=== PATIENT | male | born 1960 | race Caucasian/White ===

== ENCOUNTER → 2021-03-06 12:46 | Outpatient (CLI) | payer OTHER, SELFPAY ==
[2021-03-06 13:30] LABS: Hematocrit 42.5 % (40-54); Hemoglobin 14.4 g/dL (13.0-16.5); Mean Corp Hgb Conc 33.9 g/dL (32-36); Mean Corpuscular Hgb 30.3 pg (27.0-32.0); Mean Corpuscular Volume 89.5 fL (80-94); Mean Platelet Vol. 10.4 fl (6.2-12.0); Platelet Count 200 K/mm3 (150-450); RBC Distribution Width CV 12.6 % (11.6-14.6); RBC Distribution Width SD 41.5 fl (35.1-43.9); Red Blood Count 4.75 M/mm3 (4.6-6.2)
[2021-03-06 13:53] LABS: Anion Gap 6 (5-15); BUN 16 mg/dL (7-18); BUN/Creat Ratio 15.4 RATIO (10-20); Chloride 105 mmol/L (98-107); Creatinine, Serum 1.04 mg/dL (0.70-1.30); EST Glomerular Filtration Rate 78 mL/min (>60); Est Glom Filt Rate - Afr Amer 94 mL/min (>60); Glucose 189 mg/dL (74-106); Potassium 4.2 mmol/L (3.5-5.1); Sodium Level 139 mmol/L (136-145)
== END ==
PROVIDERS: PCP Family Medicine; Visit Provider Urology
DX: Z01.810 Encounter for preprocedural cardiovascular examination (principal); Z01.812 Encounter for preprocedural laboratory examination
CPT/HCPCS: 36415; 80048; 85027; 87635; 93005; C9803; U0005; U0003

== ENCOUNTER → 2021-03-12 13:36 | Outpatient (CLI) | payer OTHER, SELFPAY ==
--- NOTE | 2021-03-12 13:58 | CT_ITS ---
STUDY: CT ABDOMEN AND PELVIS WITHOUT CONTRAST REASON FOR EXAM: Male, 60 years old. CALCULUS OF URETER. Left flank pain for 3 days and hematuria. RADIATION DOSAGE (If Supplied By Facility): CTDIvol = ( 17.08 ) mGy, DLP = ( 824.53 ) mGycm TECHNIQUE: Transaxial images were obtained from the dome of the diaphragm to the symphysis pubis without oral contrast, and without intravenous contrast. Sagittal and coronal images were reconstructed. Individualized dose optimization techniques were used for this CT. COMPARISON: None. FINDINGS: The visualized lung bases are unremarkable. Coronary artery calcification. Normal liver. There are surgical clips in the gallbladder fossa consistent with a prior cholecystectomy. Normal spleen. There are pancreatic calcifications in the distribution of the ducts consistent with chronic pancreatitis. Normal bilateral adrenal glands. Normal right kidney. Mild degree of left hydronephrosis due to a 2.5 mm calculus in the distal portion of the left ureter. Normal visualized stomach. Normal small intestine. There are multiple colonic diverticula consistent with diverticulosis. The appendix is visualized and appears normal. There is scattered atherosclerotic calcification of the abdominal aorta, without a demonstrated aneurysm. Normal inferior vena cava. Normal retroperitoneum. Several calculi are seen at the base of the bladder. The largest measures 1.6 cm x 1.1 cm. This is at the right side of the base of the bladder. There is evidence of a contracted gallbladder with diffuse thickening of the bladder wall. Diffuse prostatic calcification worse at the right base of the prostate. The prostate is enlarged with indentation at the bladder base. The prostate measures 4.2 cm x 5.3 cm. Normal abdominal wall. There are diffuse degenerative changes of the visualized lumbar spine. CT/Abdomen/Pelvis without Cont IMPRESSION: Diffuse bladder wall thickening with several stones at the base of the bladder more prominent on the right side. 2.5 mm calculus in the distal portion of left ureter causing left hydronephrosis. Chronic pancreatitis with pancreatic calcifications. Electronically Signed: Armando Alarcon MD at 15:08 EST , Service support ,
== END ==
PROVIDERS: Referring Provider Urology; Visit Provider Urology
DX: N20.1 Calculus of ureter (principal)
CPT/HCPCS: 74176